=== PATIENT | female | born 1955 | race Caucasian/White ===

== ENCOUNTER 2020-10-21 15:31 | Emergency (ER) | payer MEDICARE, SELFPAY ==
--- NOTE | ~2020-10-21 | CT_ITS ---
EXAMINATION: CT brain wo con DATE: 10/21/2020 15:49 INDICATION: Fall. Left-sided temporal hematoma. TECHNIQUE: Computed tomography (CT) of the head was performed without intravenous contrast. The mA wa s adjusted according to patient size. Iterative reconstruction technique was employed. Exam dose: 12 10.67 mGy-cm total exam DLP. COMPARISON: None FINDINGS: There is prominent left temporal cephalohematoma and an underlying to 4 mm deep left tempor oparietal subdural hematoma. No skull fracture is detected. No intracranial mass lesion or hemorrhage is noted otherwise. No cerebrovascular accident is detected . No midline shift or appreciable mass effect effect. Included paranasal sinuses and mastoid air cells are unremarkable. IMPRESSION: 4 mm deep left temporal parietal subdural hematoma Dr. Gordon telephoned the report including left temporal parietal subdural hematoma on 10/21/2020 at 160 4 hours to emergency room physician Dr. Chau. Reviewed, dictated and finalized at [facility]. Reviewed, dictated and finalized at [facility]. IMPRESSION: 4 mm deep left temporal parietal subdural hematoma Dr. Gordon telephoned the report including left temporal parietal subdural hemato ma on 10/21/2020 at 1604 hours to emergency room physician Dr. Chau.
--- NOTE | ~2020-10-21 | CT_ITS ---
EXAMINATION: CT cervical spine wo con DATE: 10/21/2020 15:49 INDICATION: Fall. Left temporal hematoma. Confusion. TECHNIQUE: Computed tomography (CT) of the cervical spine was performed without intravenous contrast. Automated exposure control and iterative reconstruction technique were employed. Exam dose: 432.30 mGy-cm total exam DLP. COMPARISON: None FINDINGS: There is straightening of cervical spine which may be due to positioning or muscle spasm. C1 and C2 are normally aligned and the odontoid process is intact. There is prominent anterior spurring from C4 through C7 with degenerative disc disease, particularly at C6-7, with posterior C6-7 spurring. There is prominent degenerative change at the apophyseal and uncovertebral joints throughout the cerv ical spine. IMPRESSION: Degenerative changes; no fracture or dislocation Reviewed, dictated and finalized at [facility] Reviewed, dictated and finalized at [facility].
--- NOTE | ~2020-10-21 | XR_ITS ---
XR wrist LT min 3V DATE: 10/21/2020 16:23 INDICATION: Fall. Generalized wrist pain TECHNIQUE: 3 views COMPARISON: None FINDINGS: There is a virtually nondisplaced distal radial metaphyseal fracture Normal alignment at the wrist joint. There is chronic hypertrophic bone formation apparently bridging the proximal and distal row of carpa l bones medially. Osteoarthritic changes are noted at the carpometacarpal joint. Osteopenia. IMPRESSION: Virtually nondisplaced distal radial metaphyseal fracture Diffuse osteopenia Osteoarthritic changes at the carpometacarpal joints Reviewed, dictated and finalized at [facility].
--- NOTE | ~2020-10-21 | XR_ITS ---
XR hand LT min 3V DATE: 10/21/2020 16:24 INDICATION: Fall. Pain between fourth and fifth digits. Patient has soft tissue tumor. TECHNIQUE: 3 views COMPARISON: None FINDINGS: Diffuse osteopenia. Impression nondisplaced distal radial metaphyseal fracture is again noted. There is hypertrophic chronic bone formation bridging the medial aspect of the proximal and distal ro w of carpal bones. Osteoarthritic changes at the carpometacarpal joints, first metacarpophalangeal joint and multiple in terphalangeal joints. There is soft tissue prominence of the medial hand; given clinical history of soft tissue tumor. IMPRESSION: Distal radial metaphyseal fracture Osteopenia Polyarticular osteoarthritis Reviewed, dictated and finalized at [facility]. Impression nondisplaced distal radial metaphyseal fracture is again noted. There is hypertrophic chronic bone formation bridging the medial aspect of the proximal and distal row of carpal bones. Osteoarthritic changes at the carpometacarpal joints, first metacarpophalangeal joint and multiple interphalangeal joints. There is soft tissue prominence of the medial hand; given clinical history of s oft tissue tumor.
[2020-10-21 15:23] VITALS: BP 211/100; PULSE 99; RESP 19; TEMP 36.3; O2SAT 100
--- NOTE | 2020-10-21 15:32 | ECG_ITS ---
Measurements Intervals [place] Rate: 90 P: 74 AK: 198 QRS: 48 QRSD: 96 T: 72 QT: 361 QTc: 443 Interpretive Statements SINUS RHYTHM BASELINE WANDER- I, AVR, AVL NORMAL ECG Electronically Signed On 10-21-2020 21:55:57 CDT by Ayaan Pinedo D.O.
[2020-10-21 15:51] VITALS: BP 198/103; PULSE 93; RESP 17; O2SAT 97
--- NOTE | 2020-10-21 16:01 | ED.GENADULT ---
HPI - General Adult General Chief complaint: Fall Stated complaint: FALL/HI Time Seen by Provider: 10/21/20 15:33 Source: patient History of Present Illness HPI narrative: Patient is a 64 y/o female complaining of left sided headache and left hand pain. She does not recall what happened. She was working outside in the yard earlier today. states that he received a call from patient stating that she is sick while he was at work. He came home found the patient sitting in a chair with bruise on left side of her head. She does not recall falling or hitting her head. She states that she may have passed out, but she is not sure. She describes her headache as burning and rates it as 10/10. She has no neck pain, chest pain or abdominal pain. Related Data Home Medications Medication Instructions Recorded Confirmed linaclotide [Linzess] mcg 10/21/20 Allergies Allergy/AdvReac Type Severity Reaction Status Date / Time No Known Allergies Allergy Unverified 10/21/20 15:48 Review of Systems Constitutional: Constitutional: Denies chills, Denies fever(s), Reports headache(s) and Denies weakness Eyes: Eyes: Denies blurry vision ENT: Reports headache(s) and Denies neck pain Cardiovascular: Cardiovascular: Denies chest pain and Denies dyspnea Respiratory: Respiratory: Denies cough and Denies dyspnea Gastrointestinal: Gastrointestinal: Denies abdominal pain, Denies diarrhea, Denies nausea and Denies vomiting Genitourinary: Genitourinary: Denies hematuria and Denies dysuria Musculoskeletal: Musculoskeletal: Denies back pain, Denies neck pain and Reports other (left hand and wrist pain) Neurologic: Reports headache(s) and Denies weakness Exam Const: General: no acute distress and well developed Orientation/consciousness: oriented to person, oriented to place, oriented to time and patient oriented x3 HENMT: Head: normocephalic and contusion (left forehead and temporal) Ears: external ears normal General nose exam: Normal external nose present Eyes: General: appearance normal, both eyes and all related structures Conjunctivae: conjunctivae normal Neck: Neck: normal visual inspection and full ROM Chest: Chest palpation & inspection: normal inspection of the chest and no tenderness Resp: Effort & Inspection: normal respiratory effort Auscultation: clear to auscultation bilaterally Cardio: Rate: regular rate Rhythm: regular rhythm GI: GI Palp: No abdominal tenderness and Yes Soft to palpation Skin: General skin exam: normal color and turgor normal Neuro: General: oriented to person, oriented to place, oriented to time and patient oriented x3 Cognition (Neuro): normal cognition Speech: normal speech Motor exam (neuro): 5/5 motor strength present throughout Sensory Exam: normal sensation Extrem: General: normal to inspection, full ROM and no pedal edema Left upper extremity: wrist tenderness and hand tenderness Psych: Appearance: grossly normal Mental Status: mental status grossly normal Affect: normal affect Course Consultations Consultation #1: Discussed with Dr. Guevara (EDP) at [facility], who agrees to transfer. Date: 10/21/20 Time: 16:29 Vital Signs Vital signs: Vital Signs Temperature 36.3 C L 10/21/20 15:23 Pulse Rate 99 10/21/20 15:23 Respiratory Rate 19 10/21/20 15:23 Blood Pressure 211/100 H 10/21/20 15:23 Pulse Oximetry 100 10/21/20 15:23 Temperature 36.3 C L 10/21/20 16:47 Pulse Rate 78 10/21/20 16:43 Respiratory Rate 14 10/21/20 16:43 Blood Pressure 168/88 H 10/21/20 16:43 Pulse Oximetry 99 10/21/20 16:43 Medical Decision Making Vital Signs Vital Signs: Vital Signs Temperature 36.3 C L 10/21/20 15:23 Pulse Rate 99 10/21/20 15:23 Respiratory Rate 19 10/21/20 15:23 Blood Pressure 211/100 H 10/21/20 15:23 Pulse Oximetry 100 10/21/20 15:23 Temperature 36.3 C L 10/21/20 16:47 Pulse Rate 78 10/21/20 16:43 Respiratory Rate
[2020-10-21 16:05] LABS: Basophils Percent Auto 0.5 % (0.2-1.2); Eosinophils Percent Auto 0.4 % (0-4.4); Hematocrit 41.3 % (37.0-47.0); Hemoglobin 13.7 g/dL (12.0-15.0); Immature Granulocyte Absolute 0.02 K/mm3 (0.00-0.031); Immature Granulocyte Percent A 0.3 % (0-0.5); Lymphocytes Absolute Auto 1.72 K/mm3 (0.9-3.2); Lymphocytes Percent Auto 21.6 % (18.3-44.2); Mean Corpuscular HGB Conc 33.2 g/dl (32-36); Mean Corpuscular Hemoglobin 29.8 pg (26-34); Monocytes Absolute Auto 0.5 K/mm3 (0.1-0.6); Monocytes Percent Auto 6.3 % (2.6-8.5); Neutrophils Absolute Auto 5.7 K/mm3 (1.3-6.7); Neutrophils Percent Auto 70.9 % (45.5-73.1); Platelet Count Result 204 k/mm3 (150-375); Red Blood Count 4.59 M/mm3 (4.2-5.4); Red Cell Distribution Width 12.8 % (11.5-14.5)
[2020-10-21] MEDS: LABETALOL HCL INJ 100 MG/20 ML VIAL 20 MG IV PUSH (16:06)
[2020-10-21] MEDS: MORPHINE SULFATE (*CRX) 2 MG/ML INJ IV PUSH (16:17)
[2020-10-21 16:18] LABS: INR 0.9; Prothrombin Time 12.7 Seconds (11.1-14.7)
[2020-10-21] MEDS: levETIRAcetam 1000MG/NACL100ML 1,000 MG/100 ML BAG 400 MG IVPB (16:18)
[2020-10-21 16:19] VITALS: BP 171/95; PULSE 85; RESP 19; O2SAT 100
[2020-10-21 16:19] LABS: Partial Thromboplastin Time 26.4 SECONDS (22.3-36.8)
[2020-10-21 16:25] LABS: Alanine Aminotransferase 19 U/L (4-35); Albumin Level 4.5 g/dL (3.5-5.1); Alkaline Phosphatase 75 U/L (38-126); Anion Gap 9 mmol/L (8-16); Aspartate Amino Transferase 26 U/L (14-36); Bilirubin,Total 0.4 mg/dL (0.2-1.3); Blood Urea Nitrogen 16 mg/dL (7-17); Calcium 10.2 mg/dL (8.4-10.2); Carbon Dioxide 24 mmol/L (22-30); Chloride 107 mmol/L (98-107); Estimated CRCL calculation 67 ml/min; Estimated Glomerular Filt Rate > 60; Glucose 104 mg/dL (65-105); Potassium 3.5 mmol/L (3.4-5.0); Sodium 140 mmol/L (137-145)
[2020-10-21 16:43] VITALS: BP 168/88; PULSE 78; RESP 14; O2SAT 99
[2020-10-21 16:47] VITALS: TEMP 36.3
--- NOTE | 2020-10-21 16:49 | PC.NURSE ---
LATE ENTRY This note is being entered to document information to the patient's record. The following information was omitted on 10/21/20 at 1649. A sugar tong was noted to be placed to left arm and sling. PMS intact after intervention.
--- NOTE | 2020-10-21 16:54 | PC.NURSE ---
Addendum entered by HENRY Anderson 10/21/20 17:23: patient transferred to [facility] not [place] Original Note: Conatacted Malhotra at 1633 and they gave one hour ETA for ALS transfer to [place]. They then said they had 911 call that took the ALS ambulance and it was no longer available. Then we called [facility].
--- NOTE | 2020-10-21 16:58 | PC.NURSE ---
[facility] at bedside and report given.
== END 2020-10-21 17:15 | disposition short-term general hospital (02) ==
PROVIDERS: Emergency Provider Emergency Medicine; PCP Internal Medicine
DX: S06.5X9A Traumatic subdural hemorrhage with loss of consciousness of unspecified duration, initial encounter (principal); S59.292A Other physeal fracture of lower end of radius, left arm, initial encounter for closed fracture; I10 Essential (primary) hypertension; M85.842 Other specified disorders of bone density and structure, left hand; M18.9 Osteoarthritis of first carpometacarpal joint, unspecified; M19.042 Primary osteoarthritis, left hand; W19.XXXA Unspecified fall, initial encounter
CPT/HCPCS: 29125; 36415; 70450; 72125; 73110; 73130; 80053; 85025; 85610; 85730; 93005; 96365; 96375; 99291; J1953; J2270

== ENCOUNTER → 2021-02-06 15:05 | Outpatient (CLI) | payer MEDICARE, SELFPAY ==
--- NOTE | ~2021-02-06 | MM_ITS ---
EXAMINATION: MM screening alber BI w jennifer HISTORY: Screening TECHNIQUE: Craniocaudal and mediolateral oblique 3-D tomosynthesis images were obtained and synthetic 2-D images were generated. CAD analysis was submitted and interpreted. COMPARISON: No prior mammogram is available for comparison at this institution. BREAST PARENCHYMAL COMPOSITION: There are scattered areas of fibroglandular density. FINDINGS: There is no evidence of suspicious mass, calcification, or architectural distortion to sugg est malignancy in either breast. There has been no suspicious interval change. IMPRESSION: 1. No mammographic evidence of malignancy. 2. Recommend routine screening mammography in one year. BI-RADS Category 1: Negative Reviewed, dictated and finalized at [facility].
--- NOTE | ~2021-02-06 | XR_ITS ---
XR knee RT 3V DATE: 02/06/2021 15:24 INDICATION: Right knee pain TECHNIQUE: [place] and standing AP and lateral views COMPARISON: None FINDINGS: Diffuse osteopenia. There is enthesopathy of the patella at the quadriceps and patellar tendon insertion sites. There is periarticular spurring at the 3 compartments and moderate loss of height of the medial haile rtment joint space, consistent with tricompartment osteoarthritis. Small suprapatellar knee joint effusion. No fracture or dislocation, periosteal reaction or bone destruction. No radiopaque intra-articular lo ose body or chondrocalcinosis. IMPRESSION: Small suprapatellar knee joint effusion Tricompartment osteoarthritis Osteopenia Reviewed, dictated and finalized at [facility].
== END ==
PROVIDERS: PCP Family Medicine; Visit Provider Family Medicine
DX: Z12.31 Encounter for screening mammogram for malignant neoplasm of breast (principal); M17.11 Unilateral primary osteoarthritis, right knee; M25.461 Effusion, right knee; M85.861 Other specified disorders of bone density and structure, right lower leg
CPT/HCPCS: 73562; 77063; 77067

== ENCOUNTER 2021-02-22 05:30 | Day surgery (SDC) | payer MEDICARE, SELFPAY ==
[2021-02-14 14:03] VITALS: BMI 29.2
--- NOTE | 2021-02-22 08:36 | WPDANESEPPF ---
Anes - Initial Pre Proc Eval Procedure: Operation Date: 02/22/21 10:00 Proposed Procedures p Screening Colonoscopy - Diogo Andersen MD Date/Time: 02/22/21 08:36 Surgeon: Diogo Andersen MD Pre Op Diagnosis: neoplasm screening Patient Data Age: 65 Gender: F Height: 1.63 m Weight: 77.3 kg Allergies Allergy/AdvReac Type Severity Reaction Status Date / Time No Known Allergies Allergy Verified 02/22/21 09:14 Home Medications Medication Instructions Recorded Confirmed Type apple cider vinegar 500 mg tablet 500 mg PO DAILY tablet 01/17/21 02/22/21 History ascorbate calcium (vitamin C) 500 600 mg PO DAILY tablet 01/17/21 02/22/21 History mg tablet coenzyme Q10 100 mg capsule 100 mg PO DAILY 01/17/21 02/22/21 History magnesium citrate 70 mg-potassium 1 cap PO DAILY cap 01/17/21 02/22/21 History citrate 99 mg capsule linaclotide 72 mcg capsule 72 mcg PO DAILY #90 cap 01/22/21 02/22/21 Rx triamterene 37.5 1 tablet PO QAM 30 Days #90 tablet 01/22/21 02/22/21 Rx mg-hydrochlorothiazide 25 mg tablet Patient hx anesthesia problems: none Family hx anesthesia problems: none PMFSH Past Medical History Medical History (Updated 02/22/21 @ 08:37 by Kenny Jha MD) Allergies Anemia Arthritis Depression (04/25/19) Essential (primary) hypertension History of subdural hematoma Hypertension IBS (irritable bowel syndrome) Osteopenia Overweight (BMI 25.0-29.9) Sleep apnea Surgical History Surgical History H/O gastric bypass 2009 Status post right foot surgery 03/28/16 reconstruction Family History Family History Father Diabetes mellitus Hypertension Heart disease Mother Diabetes mellitus Hypertension Heart disease Sibling Diabetes mellitus Hypertension Son Hypertension Depression Grandparent Hypertension Heart disease Cerebrovascular accident Social History Social History Smoking packs per day: 1 Smoking cigarettes per day: 20.0 Years smoked: 5 Smoking pack-years: 5.00 Smoking status: Former smoker Tobacco type: cigarettes Second hand tobacco smoke exposure: No Alcohol intake: unknown Drinks per week: 6 Alcohol use details: beer Substance use: never Substance use type: does not use Living arrangements: with family Gender identity (if verbalized by the patient): Female Spiritual care concerns: No Agree to blood products: Yes Anes - Eval Final PreProcedure Day of Procedure 02/22/21 08:36 Patient weight: overweight Heart: regular rate and rhythm Lungs: clear to auscultation and normal air movement Airway: Mallampati scale class II Neurological: alert and oriented Last oral intake: >/= 8 hours ASA classification: II Emergent: no Anesthetic plan: proceed Anesthesia type and monitoring: general GIVS Informed Consent: The patient's anesthetic plan and its attendant risks and benefits were discussed with the patient/family/POA. Questions were solicited and answers provided to the satisfaction of the patient/family/POA.
[2021-02-22 09:16] VITALS: BP 171/78; PULSE 80; RESP 18; TEMP 36.1; O2SAT 98; BMI 31.6
[2021-02-22] MEDS: LACTATED RINGERS 1,000 ML 150 ML IV CONT (09:31)
--- NOTE | 2021-02-22 10:02 | PM.HPGS ---
History of Present Illness History of Present Illness Consent: Risks, benefits, and alternatives have been discussed and questions answered. Patient agrees to proceed with procedure. Chief complaint: neoplasm screening Narrative: Adrián Corley is a 65 year old female Referred for colon cancer screening Review of Systems Review of Systems: All systems reviewed & are unremarkable except as noted in HPI and below PMFSH Past Medical History Medical History Allergies Anemia Arthritis Depression (04/25/19) Essential (primary) hypertension History of subdural hematoma Hypertension IBS (irritable bowel syndrome) Osteopenia Overweight (BMI 25.0-29.9) Sleep apnea Surgical History Surgical History H/O gastric bypass 2009 Status post right foot surgery 03/28/16 reconstruction Family History Family History Father Diabetes mellitus Hypertension Heart disease Mother Diabetes mellitus Hypertension Heart disease Sibling Diabetes mellitus Hypertension Son Hypertension Depression Grandparent Hypertension Heart disease Cerebrovascular accident Social History Social History Smoking packs per day: 1 Smoking cigarettes per day: 20.0 Years smoked: 5 Smoking pack-years: 5.00 Smoking status: Former smoker Tobacco type: cigarettes Second hand tobacco smoke exposure: No Alcohol intake: unknown Drinks per week: 6 Alcohol use details: beer Substance use: never Substance use type: does not use Living arrangements: with family Gender identity (if verbalized by the patient): Female Spiritual care concerns: No Agree to blood products: Yes Meds Home Medications and Allergies Home Medications Medication Instructions Recorded Confirmed Type apple cider vinegar 500 mg tablet 500 mg PO DAILY tablet 01/17/21 02/22/21 History ascorbate calcium (vitamin C) 500 600 mg PO DAILY tablet 01/17/21 02/22/21 History mg tablet coenzyme Q10 100 mg capsule 100 mg PO DAILY 01/17/21 02/22/21 History magnesium citrate 70 mg-potassium 1 cap PO DAILY cap 01/17/21 02/22/21 History citrate 99 mg capsule linaclotide 72 mcg capsule 72 mcg PO DAILY #90 cap 01/22/21 02/22/21 Rx triamterene 37.5 1 tablet PO QAM 30 Days #90 tablet 01/22/21 02/22/21 Rx mg-hydrochlorothiazide 25 mg tablet Allergies Allergy/AdvReac Type Severity Reaction Status Date / Time No Known Allergies Allergy Verified 02/22/21 09:14 Vital Signs Vital Signs - 24 hr 02/22/21 09:16 Temperature 36.1 C L Pulse Rate 80 Respiratory Rate 18 Blood Pressure 171/78 H Pulse Oximetry 98 Exam Resp: Auscultation: clear to auscultation bilaterally Cardio: Rate: regular rate Rhythm: regular rhythm GI: GI Palp: Yes Soft to palpation and No Tenderness to palpation present (GI) Assessment and Plan Assessment and plan (1) Screening for colon cancer: Code(s): Z12.11 - Encounter for screening for malignant neoplasm of colon Status: Acute Assessment and Plan: Colonoscopy with possible biopsy or polypectomy or cautery or injection of substances.
[2021-02-22 10:35] VITALS: BP 102/54; PULSE 66; RESP 20; O2SAT 97
[2021-02-22 10:45] VITALS: BP 112/61; PULSE 71; RESP 20; O2SAT 100
[2021-02-22 10:55] VITALS: BP 126/70; PULSE 64; RESP 20; O2SAT 100
== END 2021-02-22 11:03 | disposition home or self-care (01) ==
PROVIDERS: PCP Family Medicine; Visit Provider Internal Medicine Gastroenterology
PROC: 0DJD8ZZ Inspection of Lower Intestinal Tract, Via Natural or Artificial Opening Endoscopic (ICD-10-PCS; CPT 45378; principal; 2021-02-22 10:00)
DX: Z12.11 Encounter for screening for malignant neoplasm of colon (principal); D12.0 Benign neoplasm of cecum; D12.5 Benign neoplasm of sigmoid colon; D12.8 Benign neoplasm of rectum; K64.8 Other hemorrhoids; D64.9 Anemia, unspecified; I10 Essential (primary) hypertension; K58.9 Irritable bowel syndrome, unspecified; M85.80 Other specified disorders of bone density and structure, unspecified site; M19.90 Unspecified osteoarthritis, unspecified site; E66.3 Overweight; G47.30 Sleep apnea, unspecified; F32.9 Major depressive disorder, single episode, unspecified; Z87.891 Personal history of nicotine dependence
CPT/HCPCS: 45385; 45380; 88305; J2704; J7120

== ENCOUNTER 2023-11-17 15:36 | Outpatient (CLI) | payer MEDICARE, SELFPAY ==
--- NOTE | ~2023-11-17 | MM_ITS ---
EXAMINATION: MM screening alber BI w jennifer HISTORY: Screening mammogram TECHNIQUE: Craniocaudal and mediolateral oblique 3-D tomosynthesis images were obtained and synthetic 2-D images were generated. CAD analysis was submitted and interpreted. COMPARISON: 02/06/2021 bilateral screening mammogram BREAST PARENCHYMAL COMPOSITION: There are scattered areas of fibroglandular density. FINDINGS: There is no evidence of suspicious mass, calcification, or architectural distortion to sugg est malignancy in either breast. There has been no suspicious interval change. IMPRESSION: 1. No mammographic evidence of malignancy. 2. Recommend routine screening mammography in one year. BI-RADS Category 1: Negative Reviewed, dictated and finalized at [facility].
== END 2023-11-17 15:37 ==
LOC: MICIMG 15:39
PROVIDERS: PCP Family Medicine; Visit Provider Family Medicine
DX: Z12.31 Encounter for screening mammogram for malignant neoplasm of breast (principal)
CPT/HCPCS: 77063; 77067